=== PATIENT | female | born 1965 | race African-American/Black ===

== ENCOUNTER → 2018-06-20 | Outpatient (CLI) | payer OTHER ==
[~2018-06-20] MED LIST: FOLI200T13 PO; TURM500C4 PO
== END | disposition home or self-care (01) ==
LOC: STAR 08:34
PROVIDERS: ATTEND Internal Medicine Gastroenterology
DX: Z02.9 Encounter for administrative examinations, unspecified (principal)

== ENCOUNTER 2018-06-26 07:26 | Day surgery (SDC) | payer OTHER ==
[~2018-06-26] VITALS: Ht 182.9 cm; Wt 156.8 kg
[2018-06-26] MEDS ORDERED: LACTATED RINGERS 1,000 ML IV SCH (07:53)
[2018-06-26 08:20] LABS: HCG UR SG 1.013 (1.003-1.030)
[2018-06-26] MEDS ORDERED: PROPOFOL 10 MG/ML, 20ML ONE (08:58)
[2018-06-26] MEDS ORDERED: PROMETHAZINE 25 MG/ML, 1ML IM PRN (09:30)
[2018-06-26] MEDS ORDERED: ONDANSETRON ODT 8 MG PO PRN (09:30)
[2018-06-26] MEDS ORDERED: PROMETHAZINE 25 MG SUPP PR PRN (09:30)
[2018-06-26] MEDS ORDERED: ONDANSETRON 2MG/ML, 2ML IV PRN (09:30)
[2018-06-26] MEDS ORDERED: MORPHINE SULFATE 4 MG/ML, 1ML IVPush PRN (09:30)
[2018-06-26] MEDS ORDERED: ALBUTEROL SULFATE 2.5 MG/3 ML NPPB PRN (09:30)
[2018-06-26] MEDS ORDERED: MEPERIDINE/PF 25MG/0.5ML IVPush PRN (09:30)
[2018-06-26] MEDS ORDERED: MIDAZOLAM 1 MG/ML, 2ML IV PRN (09:30)
[2018-06-26] MEDS ORDERED: OXYcodone 5 MG/5 ML ORAL.SOL UDC PO PRN (09:30)
[2018-06-26] MEDS ORDERED: FENTANYL PF 100 MCG/2ML IV PRN (09:30)
[2018-06-26] MEDS ORDERED: hydrALAzine 20 MG/ML, 1ML IV PRN (09:30)
[2018-06-26] MEDS ORDERED: LABETALOL 5MG/ML, 20ML IV PRN (09:30)
[2018-06-26] MEDS ORDERED: DIAZEPAM 5 MG/ML, 2ML IVPush PRN (09:30)
[2018-06-26] MEDS ORDERED: HYDROmorphone 2 MG/ML, 1ML IVPush PRN (09:30)
[2018-06-26] MEDS ORDERED: EPHEDRINE 50 MG/ML, 1ML IVPush PRN (09:30)
== END 2018-06-26 11:00 | disposition home or self-care (01) ==
LOC: OUT 07:26
PROVIDERS: ATTEND Internal Medicine Gastroenterology
DX: Z12.11 Encounter for screening for malignant neoplasm of colon (principal); K64.0 First degree hemorrhoids; K63.89 Other specified diseases of intestine; E66.01 Morbid (severe) obesity due to excess calories; Z68.45 Body mass index [BMI] 70 or greater, adult
CPT/HCPCS: 45378; 81025; J2704; J7120